=== PATIENT | female | born 1995 | race Caucasian/White ===

== ENCOUNTER 2022-12-15 15:50 | Outpatient (CLI) | payer OTHER, SELFPAY ==
[2022-12-15 16:25] VITALS: BP 114/74; PULSE 90
[2022-12-15 17:09] VITALS: BMI 34.0
[2022-12-15 17:16] VITALS: BP 103/63; PULSE 81
--- NOTE | 2022-12-17 13:15 | OB.TRI.NOTE ---
HPI - General HPI Narrative GREGORIA MENDEZ, is a 27 F @ 32 weeks PN elsewhere who presents for Decrased FM NST FHR Rate Baby A Baseline: 135 Variability:: Moderate Accelerations:: 15 x 15 Decelerations:: None NST Reactive:: Yes FHR Category:: Category I Uterine Activity:: occasional Assessment & Plan (1) Decreased movement affecting management of mother, antepartum: PLAN: Plan @ 32 weeks decreased FM, well being established 1) dc home 2) NST reactive cat 1- follow up with OB provider
== END 2022-12-15 17:20 | disposition home or self-care (01) ==
LOC: WPOUT 16:04 → WP 16:05
PROVIDERS: Referring Provider Obstetrics & Gynecology; Visit Provider Obstetrics & Gynecology
DX: O36.8130 Decreased fetal movements, third trimester, not applicable or unspecified (principal); Z3A.32 32 weeks gestation of pregnancy
CPT/HCPCS: 59025; 59050